=== PATIENT | male | born 1960 | race Caucasian/White ===

== ENCOUNTER 2016-12-08 11:11 | Outpatient (CLI) | payer BC ==
--- NOTE | 2016-12-08 11:59 | DIAGNOSTIC IMAGING REPORT ---
PROCEDURE: XR CHEST 2 VIEW INDICATION: CHEST PX UNSPECIFIED TECHNIQUE: PA and lateral views. COMPARISON: None. FINDINGS: Lungs are clear. Heart and mediastinum are normal. Thorax is normal. IMPRESSION: 1. Negative chest.
== END 2016-12-08 23:00 ==
LOC: LAB SRH 11:11
DX: R07.9 Chest pain, unspecified (principal); K64.8 Other hemorrhoids; K92.1 Melena
CPT/HCPCS: 90074; 90100; 90287; 92235; 95059